=== PATIENT | female | born 1955 | race Caucasian/White ===

== ENCOUNTER 2025-01-02 05:49 | Day surgery (SDC) | payer MEDICARE ==
[2024-12-31 12:41] VITALS: BMI 27.3
[2025-01-02] MEDS ORDERED: ALPRAZolam 0.5 MG TAB PO PRN (06:12)
[2025-01-02] MEDS ORDERED: NITROGLYCERIN SL TABS 0.4 MG TAB SUBLINGUAL PRN (06:12)
[2025-01-02] MEDS ORDERED: ALPRAZolam 0.25 MG TAB PO PRN (06:12)
[2025-01-02 06:36] VITALS: RESP 16; TEMP 97
[2025-01-02] MEDS: SODIUM CHLORIDE 0.9% 1,000 ML in EMPTY BAG 1 BAG IV SCH (06:49)
[2025-01-02] MEDS: IV FLUID CONTINUATION 1,000 ML IV ONE (06:51)
[2025-01-02] MEDS: ASPIRIN 325 MG TAB PO ONE (06:56)
[2025-01-02 07:21] LABS: African American GFR (CKD) >90 (>60 ml/min/1.73 sqM); Anion Gap 6 mmol/L; Basophils % (A) 0 %; Blood Urea Nitrogen 18 mg/dL (7-17); Calcium 9.5 mg/dL (8.4-10.2); Carbon Dioxide 26 mmol/L (22-30); Chloride 105 mmol/L (98-107); Eosinophils # (A) 0.4 k/uL (0-0.7); Eosinophils % (A) 6 %; Glucose 99 mg/dL (74-99); HCT 37.9 % (34.0-46.0); HGB 12.1 gm/dL (11.4-16.0); Lymphocytes # (A) 1.7 k/uL (1.0-4.8); Lymphocytes % (A) 30 %; MCH 29.4 pg (25.0-35.0); MCHC 31.9 g/dL (31.0-37.0); MCV 92.2 fL (80.0-100.0); Mean Platelet Volume 8.8; Monocytes # (A) 0.4 k/uL (0-1.0); Monocytes % (A) 6 %; Neutrophils # (A) 3.2 k/uL (1.3-7.7); Neutrophils % (A) 55 %; Non-African American GFR(CKD) >90 (>60 ml/min/1.73 sqM); Platelet Count 222 k/uL (150-450); RBC 4.11 m/uL (3.80-5.40); RDW 13.2 % (11.5-15.5); Sodium 137 mmol/L (137-145); WBC 5.9 k/uL (3.8-10.6)
[2025-01-02 07:32] LABS: Potassium 4.3 mmol/L (3.5-5.1)
[2025-01-02] MEDS: MIDAZOLAM 2 MG/2 ML VIAL IVP ONE (07:52)
[2025-01-02] MEDS: LIDOCAINE 1% INJ 10MG/ML (20 ML MDV) SQ ONE ×2 (07:52)
[2025-01-02] MEDS: IOPAMIDOL-250 100ML BTL INTRAARTER ONE (08:20)
[2025-01-02] MEDS: HEPARIN SODIUM,PORCINE 10,000 UNIT in SODIUM CHLORIDE 0.9% 1,000 ML IRRIGATION PRN (08:22)
[2025-01-02] MEDS: HEPARIN SODIUM,PORCINE (1 ML) 2,500 UNIT in SODIUM CHLORIDE 0.9% 250 ML IRRIGATION PRN (08:22)
[2025-01-02] MEDS: SODIUM CHLORIDE 0.9% 1,000 ML IV SCH (08:35)
[2025-01-02] MEDS: ATORVASTATIN 80 MG TAB PO ONE (10:49)
[2025-01-02 12:39] VITALS: BP 112/58; PULSE 50
--- NOTE | 2025-01-02 22:12 | CC ---
CARDIAC CATHETERIZATION REPORT PERFORMED BY: Dr. Bel Walker. PROCEDURES PERFORMED: Left heart catheterization and coronary angiography. Moderate conscious sedation time was 28 minutes. The patient was administered Versed. Oxygen saturation, hemodynamics, and EKG were monitored closely. CLINICAL INFORMATION: Ms. Dunia Cardoso is a 69-year-old lady with a history of nonischemic cardiomyopathy, but recent stress test revealed abnormality, raising the possibility of ischemia as well, and she was advised cardiac cath and brought in for a procedure electively. PROCEDURE NOTE: Under local anesthesia and strict aseptic precautions, I was able to gain access into the right radial artery, but could not advance the wire. After multiple attempts, I abandoned the procedure and went from the right femoral approach. Micropuncture needle technique under strict aseptic precautions and local anesthesia was used to gain access. A 6-[place] introducer was placed. A 3.5 left and a 4.0 right Don catheters were used and the same right catheter was used to check LV pressure, but LV- gram was not performed. The sheath was taken out and Angio-Seal device was used to secure hemostasis, and she was sent to the room in a stable condition. For the right radial site, a pressure bandage was applied and pulse was good. CARDIAC CATHETERIZATION FINDINGS: The left ventricular end-diastolic pressure was about 12 mmHg without any gradient across aortic valve. CORONARY ANGIOGRAPHY FINDINGS: Right coronary artery is a dominant vessel, has about 20% to 30% proximal lesion. It distally bifurcates into PDA and PLV. Minor irregularities. No significant disease. Left main coronary artery: Short, patent, disease-free vessel that bifurcates into LAD and circumflex. Left anterior descending coronary artery: Good caliber vessel, gives off septal and diagonal branches, runs all the way towards the apex, supplies sizable amount of myocardium. Minor irregularities. No significant disease. Left posterior circumflex coronary artery: Technically, a nondominant vessel, has fair caliber, fair distribution and gives off an obtuse marginal branch proximally, and then, continues distally as a fair caliber vessel. Minor irregularities. No significant disease. FINAL IMPRESSION: This patient has normal filling pressures. No gradient. Right-dominant system. Minor irregularities. No significant coronary artery disease. RECOMMENDATIONS: Findings were discussed with the patient and her daughter. We will continue current medical therapy and risk factor modification. She will be discharged later on today and I will see her in the office in about a week. MMODL / IJN: [id number] /
== END 2025-01-02 16:06 | disposition home or self-care (01) ==
LOC: CATHCVL 05:49
PROVIDERS: ATTEND Internal Medicine Interventional Cardiology
DX: R94.39 Abnormal result of other cardiovascular function study (principal); I42.8 Other cardiomyopathies; I10 Essential (primary) hypertension; E78.5 Hyperlipidemia, unspecified; Z87.891 Personal history of nicotine dependence; Z79.82 Long term (current) use of aspirin
CPT/HCPCS: 93458; 80048; 85025; J2250; J1644 ×2; J2003; Q9966